=== PATIENT | female | born 1990 | race Caucasian/White ===

== ENCOUNTER 2016-08-21 14:40 | Emergency (ER) ==
[2016-08-21 14:57] VITALS: BP 131/87
--- NOTE | 2016-08-21 15:39 | PROVIDER DOCUMENTATION ---
HPI-Abdominal Pain/GI Problem - General Source: patient - History of Present Illness-ABD Nature of Presenting Problems: Pt is 26 y/o F presents to the ED with epigastric pain. Pt states pain has been present for 2 months. Pt denies N/V/D. Pt states being seen at [facility] and told it might be her gallbladder. Pt states last BM yesterday. Pt states she started period today Abdominal Pain Onset Location: reports: epigastric Pain Radiation: reports: no radiation Quality of Pain: reports: aching Severity in ED: reports: mild Onset/Duration: reports: other (2 months) Timing: reports: still present Activities at Onset: reports: light activity Exposure to sick contacts?: No Modifying Factors: improves with: nothing Associated Symptoms: reports: denies symptoms Last BM: 24 hours ago Dark Stools Present?: reports: none noticed Rectal Bleeding: reports: none Rectal Pain: reports: none Emesis Description: reports: none Bruising or Bleeding Gums?: No Similar Symptoms Previously?: Yes Recently seen or treated by another doctor?: Yes <Mandy Franco - Last Filed: 08/21/16 17:27> <Rosalia Husain - Last Filed: 08/21/16 18:03> - General Chief Complaint: Abdominal Pain Stated Complaint: ABD PAIN Time Seen by Provider: 08/21/16 15:21 Allergies/Adverse Reactions: Patient Allergies Allergy/AdvReac Type Severity Reaction Status Date / Time methylphenidate HCl * Allergy Unknown sleep Verified 06/30/14 14:22 [From Ritalin] Home Medications: Home Medication List Medication Instructions Recorded Confirmed Last Taken Type Levetiracetam [Keppra Xr] 3,750 mg PO HS 11/08/12 06/30/14 06/30/14 08:00 History Dicyclomine [Bentyl] 20 mg PO BID #20 capsule 08/21/16 Unknown Rx Ondansetron HCl [Zofran] 4 mg PO 08/21/16 Unknown History Ranitidine HCl [Zantac 75] 300 mg PO DAILY 08/21/16 08/21/16 Unknown History Sucralfate [Carafate] 1 gm PO DAILY 08/21/16 08/21/16 Unknown History Review of Systems - Adult - REVIEW OF SYSTEMS - ADULT Constitutional: reports: no symptoms reported Eyes: reports: no symptoms reported Ears, Nose, Mouth & Throat: reports: no symptoms reported Cardiovascular: reports: no symptoms reported Respiratory: reports: no symptoms reported Gastrointestinal: reports: abdominal pain (epigastric). denies: diarrhea, nausea, vomiting Genitourinary: reports: no symptoms reported Musculoskeletal: reports: no symptoms reported Integumentary: reports: no symptoms reported Neurological: reports: no symptoms reported Psychiatric: reports: no symptoms reported Endocrine: reports: no symptoms reported Hematologic/Lymphatic: reports: no symptoms reported Allergic/Immunologic: reports: no symptoms reported All Other Systems: Reviewed and Negative <Mandy Franco - Last Filed: 08/21/16 17:27> Past History - Adult - PAST MEDICAL HISTORY-ADULT Review of Records: reports: Nursing Assessment Review, Medications Reviewed, Social history reviewed & non-contributory. Major Childhood Illnesses: reports: denies history Cardiovascular: reports: denies history Respiratory: reports: denies history Gastrointestinal: reports: denies history Obstetrical/Gynecological: reports: denies history Genitourinary: reports: denies history Musculoskeletal: reports: denies history Neurological: reports: Seizures/Epilepsy Psychiatric: reports: other (ADHD) Endocrine/Immune: reports: denies history Other Conditions: reports: denies history - PRIOR SURGERIES/PROCEDURES Surgical/Procedure History: reports: reviewed, not pertinent, other (wisdom teeth) - IMMUNIZATION STATUS Childhood Immunizations: See Nurse Assessment Flu Vaccine: See Nurse Assessment - FAMILY HISTORY Family History: reviewed, not pertinent - SOCIAL HISTORY Smoking: quit less than 1 year, cigarettes Substance Use: denies Living Situation: family <SalvadorMandy - Last Filed: 08/21/16 17:27> Physical Exam-General - CONSTITUTIONAL General Appearance: appears well, alert, no apparent distress - EYES Eyes: PERRL/EOMI, pink conjunctivae, fundi clear, no AV nicking - HEAD, EARS, NOSE, MOUTH & THROAT HENMT: normocephalic/atraumatic, moist mucous membranes, normal ENT inspection, TMs normal, pharynx normal - NECK Neck: non-tender, full range of motion, supple, normal inspection - RESPIRATORY Respiratory: chest non-tender, lungs clear, normal breath sounds, no pleuratic chest pain, no respiratory distress, no accessory muscle use - CARDIOVASCULAR Cardiovascular: normal peripheral pulses, regular rate, rhythm, no edema, no gallop, no JVD, no murmur - GASTROINTESTINAL (ABDOMEN) Abdominal Exam: normal bowel sounds, non tender, soft, no organomegaly, no pulsatile mass - LYMPHATIC Lymphatic: no adenopathy - MUSCULOSKELETAL Back Exam: normal inspection, no CVA tenderness, no vertebral tenderness Extremity: normal range of motion, non-tender, normal gait, normal inspection, no pedal edema, no calf tenderness, normal capillary refill - SKIN Integumentary: normal color, normal turgor, warm/dry - NEUROLOGIC Neurologic: grossly normal - PSYCHIATRIC Psych/Mental Status: normal mood/affect, oriented x 3 <Mandy Franco - Last Filed: 08/21/16 17:27> Progress - PLAN OF CARE/RESULTS Progress/Plan/Lab Results: Laboratory Tests 08/21/16 08/21/16 16:18 16:18 WBC 6.68 RBC 5.23 Hgb 15.0 Hct 43.5 MCV 83.2 MCH 28.7 MCHC 34.5 RDW Std Deviation 12.7 Plt Count 252 MPV 10.3 Immature Gran % (Auto) 0.1 Neut % (Auto) 54.1 Lymph % (Auto) 37.4 [place] % (Auto) 4.9 Eos % (Auto) 3.1 Baso % (Auto) 0.4 Immature Gran # (Auto) 0.01 Neut # (Auto) 3.60 Lymph # (Auto) 2.50 [place] # (Auto) 0.33 Eos # (Auto) 0.21 Baso # (Auto) 0.03 Sodium 140 Potassium 3.7 Chloride 106 Carbon Dioxide 23 L Anion Gap 11 BUN 14 Creatinine 0.7 Estimated GFR/1.73 m2 > 60 BUN/Creatinine Ratio 20 Glucose 94 Calculated Osmolality 280 Calcium 8.6 L Total Bilirubin 0.30 AST 15 ALT 18 Alkaline Phosphatase 57 Total Protein 7.1 Albumin 4.0 Globulin 3.0 Albumin/Globulin Ratio 1.0 Orders Category Date Time Status ED: Urine Bedside ORDERED Care 08/21/16 15:43 Active Saline Loc NOW Care 08/21/16 15:[address] ABD/PELVIS W/ IV CONT ONLY [CT] Stat Exams 08/21/16 15:43 Taken CBC WITH ELECTRONIC DIFF [HEME] Stat Lab 08/21/16 16:18 Completed COMPREHENSIVE METABOLIC PANEL [CHEM] Stat Lab 08/21/16 16:18 Completed Vital Signs - 24 hr 08/21/16 14:51 Temperature 98 F Pulse Rate 63 Respiratory 18 Rate Blood Pressure 131/87 O2 Sat by Pulse 98 Oximetry <Mandy Franco - Last Filed: 08/21/16 17:27> - PLAN OF CARE/RESULTS Progress/Plan/Lab Results: Discussed results and plan of care with patient. Patient agrees with plan and verbalizes understanding. Vital Signs Temp Pulse Resp BP Pulse Ox 08/21/16 14:51 98 F 63 18 131/87 98 methylphenidate HCl * [From Ritalin] Allergy (Unknown, Verified 06/30/14 14:22) sleep PER WRITTEN ORDER Levetiracetam [Keppra Xr] 3,750 mg PO HS 11/08/12 Ondansetron HCl [Zofran] 4 mg PO 08/21/16 Ranitidine HCl [Zantac 75] 300 mg PO DAILY 08/21/16 Sucralfate [Carafate] 1 gm PO DAILY 08/21/16 Laboratory 08/21/16 08/21/16 16:18 16:18 WBC 6.68 RBC 5.23 Hgb 15.0 Hct 43.5 MCV 83.2 MCH 28.7 MCHC 34.5 RDW Std Deviation 12.7 Plt Count 252 MPV 10.3 Immature Gran % (Auto) 0.1 Neut % (Auto) 54.1 Lymph % (Auto) 37.4 [place] % (Auto) 4.9 Eos % (Auto) 3.1 Baso % (Auto) 0.4 Immature Gran # (Auto) 0.01 Neut # (Auto) 3.60 Lymph # (Auto) 2.50 [place] # (Auto) 0.33 Eos # (Auto) 0.21 Baso # (Auto) 0.03 Sodium 140 Potassium 3.7 Chloride 106 Carbon Dioxide 23 L Anion Gap 11 BUN 14 Creatinine 0.7 Estimated GFR/1.73 m2 > 60 BUN/Creatinine Ratio 20 Glucose 94 Calculated Osmolality 280 Calcium 8.6 L Total Bilirubin 0.30 AST 15 ALT 18 Alkaline Phosphatase 57 Total Protein 7.1 Albumin 4.0 Globulin 3.0 Albumin/Globulin Ratio 1.0 Orders Category Date Time Status ED: Urine Bedside ORDERED Care 08/21/16 15:43 Active Saline Loc NOW Care 08/21/16 15:[address] ABD/PELVIS W/ IV CONT ONLY [CT] Stat Exams 08/21/16 15:43 Taken CBC WITH ELECTRONIC DIFF [HEME] Stat Lab 08/21/16 16:18 Completed COMPREHENSIVE METABOLIC PANEL [CHEM] Stat Lab 08/21/16 16:18 Completed Laboratory Tests 08/21/16 08/21/16 16:18 16:18 WBC 6.68 RBC 5.23 Hgb 15.0 Hct 43.5 MCV 83.2 MCH 28.7 MCHC 34.5 RDW Std Deviation 12.7 Plt Count 252 MPV 10.3 Immature Gran % (Auto) 0.1 Neut % (Auto) 54.1 Lymph % (Auto) 37.4 [place] % (Auto) 4.9 Eos % (Auto) 3.1 Baso % (Auto) 0.4 Immature Gran # (Auto) 0.01 Neut # (Auto) 3.60 Lymph # (Auto) 2.50 [place] # (Auto) 0.33 Eos # (Auto) 0.21 Baso # (Auto) 0.03 Sodium 140 Potassium 3.7 Chloride 106 Carbon Dioxide 23 L Anion Gap 11 BUN 14 Creatinine 0.7 Estimated GFR/1.73 m2 > 60 BUN/Creatinine Ratio 20 Glucose 94 Calculated Osmolality 280 Calcium 8.6 L Total Bilirubin 0.30 AST 15 ALT 18 Alkaline Phosphatase 57 Total Protein 7.1 Albumin 4.0 Globulin 3.0 Albumin/Globulin Ratio 1.0 - CT/MRI 1 CT Study: Abdomen, Pelvis CT Results: NAP ([place]) <Rosalia Husain - Last Filed: 08/21/16 18:03> Departure <Mandy Franco - Last Filed: 08/21/16 17:27> - Departure Time of Disposition Order: 17:59 Certified Medical Emergency: Emergent <Rosalia Husain - Last Filed: 08/21/16 18:03> - Departure DIAGNOSIS: Abdominal pain Qualifiers: Abdominal location: epigastric Qualified Code(s): R10.13 - Epigastric pain Disposition: HOME 01 Condition: Stable Additional Instructions: Follow up with primary care physician Follow up with gastroenterology Take previously prescribed medications Take new medications as directed Return to ED for any concerns or worsening of symptoms ED Follow Up Instructions: You have been treated by a care provider in the Emergency Department. These instructions are being provided to you so you can have an understanding of how to care for yourself upon discharge. Upon discharge from the Emergency Department, you are responsible for making arrangements for follow-up care by a physician of your choice. Take all prescribed medications as directed. Return to the Emergency Department immediately for any new or worsening symptoms. You may call the Physician Referral phone number at [phone] to obtain a list of Physicians who are taking new patients. Prescriptions: Dicyclomine [Bentyl] 20 mg PO BID #20 capsule Referrals: David Davenport MD [Primary Care Provider] - David Tavera MD [STAFF PHYSICIAN] - Attestation - Scribe Verification/Attestation Scribe:: Mandy Franco Acting as Scribe for:: Rosalia Husain Scribe documention review:: This chart was documented by a scribe and accurately reflects the service the provider performed and the decisions made by the provider. <Mandy Franco - Last Filed: 08/21/16 17:27> - Physician/ ZEV Attestation Patient care was provided by Advanced Practice Provider:: Yes Advanced Practice Provider:: Rosalia Husain Advanced Practice Provider documentation review:: The Mid-level provider documentation, treatment plan and medical decision making was reviewed by the physician who agrees with all treatment and medical decision making by the P. <Rosalia Husian - Last Filed: 08/21/16 18:03> Physician Attestation
[2016-08-21 16:20] LABS: MANUAL DIFF NEEDED? NO
[2016-08-21 16:23] LABS: BASO% 0.4 % (0.0-0.8); EOS# 0.21 X1000 (0.0-0.7); EOS% 3.1 % (0.0-10.0); HEMATOCRIT 43.5 % (37.0-47.0); IMM GRAN# 0.01 X1000 (0.0-0.04); IMM GRAN% 0.1 % (0.0-0.5); LYMPH% 37.4 % (20.5-51.1); MCH 28.7 PG (27-31); MCHC 34.5 g/dL (33-37); MCV 83.2 FL (81-99); MONO# 0.33 X1000 (0.11-0.59); MONO% 4.9 % (1.7-9.3); MPV 10.3 FL (7.4-10.4); NEUT% 54.1 % (42.2-75.2); PLT 252 X1000 (130-400); RBC 5.23 XMIL (4.2-5.4)
[2016-08-21 16:41] LABS: AGAP 11; ALKALINE PHOSPHATASE 57 U/L (32-104); BUN 14 mg/dL (8-22); CALCIUM 8.6 mg/dL (8.8-10.2); CHLORIDE 106 mmol/L (98-107); COSMO 280; GOT 15 U/L (10-30); GPT 18 U/L (10-36); POTASSIUM 3.7 mmol/L (3.5-5.1); SODIUM 140 mmol/L (136-145); TCO2 23 mmol/L (25-35); TOTAL PROTEIN 7.1 g/dL (6.3-8.3)
--- NOTE | 2016-08-21 20:31 | Diag Imaging Result Document ---
PROCEDURE NAME: CT ABD/PELVIS W/ IV CONT ONLY - 08/21/2016 STUDY: CT abdomen and pelvis with intravenous contrast. There is mild fatty infiltration of the liver. Normal spleen, pancreas, gallbladder, and adrenal glands. Normal enhancement of the kidneys. No hydronephrosis. Normal aorta. No bowel obstruction. Normal appendix. No abscess. No free air. The urinary bladder is only mildly distended. Normal uterus. No pelvic mass. No free fluid. IMPRESSION: 1. Normal appendix. No abscess. No bowel obstruction. 2. No hydronephrosis. 3. Fatty infiltration of the liver. A preliminary report was given at 5:48 p.m.
== END 2016-08-21 18:20 | disposition home or self-care (01) ==
LOC: P.ED 14:40
DX: R10.13 Epigastric pain (principal); R56.9 Unspecified convulsions; Z87.891 Personal history of nicotine dependence; Z79.899 Other long term (current) drug therapy
CPT/HCPCS: 74177; 80053; 85025; Q9967